=== PATIENT | male | born 1970 | race Two or more races ===

== ENCOUNTER 2024-12-11 23:46 | Inpatient (IN) | payer MEDICAID, OTHER ==
[~2024-12-11] VITALS: Ht 30.5 cm; Wt 0.5 kg
--- NOTE | 2024-12-12 00:15 | ED.PDOC ---
HPI Comments Patient brought in by EMS complaining of severe headache. Patient states he went to sleep this evening and woke up in middle of the night with severe headache, family states he was not acting appropriate. EMS state that he was answering all questions appropriately but seemed bit distracted due to the pain. Patient does have a history of end-stage renal disease, receives dialysis 3 times a week. Patient also blind. Patient denies any chest pain. Feels some mild nausea due to the headache. States the pain is in the front of his head into the back of his neck. Patient reports 10/10 pain. Says he does take metoprolol for his blood pressure and has been taking it as scheduled. Reports blood pressures typically in the 140 range, but sometimes can go up to 200 range. Patient will consult complaining of testicular swelling which started two days ago. Denies any pain to the area just noticed the swelling. Time Seen by MD: 23:49 Reviewed Notes: Nurses Notes Information Source: Patient, Emergency Med Personnel Past Medical History PAST MEDICAL HISTORY: Denies Surgical History: Denies all surgeries Constitutional: denies: chills, diaphoresis, fatigue, fever, malaise, sweats, weakness, others EENTM: reports: eye pain; denies: blurred vision, double vision, ear bleeding, ear discharge, ear drainage, ear pain, ear ringing, eye redness, hearing loss, mouth pain, mouth swelling, nasal discharge, nose bleeding, nose congestion, nose pain, photophobia, tearing, throat pain, throat swelling, voice changes, others Respiratory: denies: cough, hemoptysis, orthopnea, SOB at rest, shortness of breath, SOB with excertion, stridor, wheezing, others Cardiovascular: denies: chest pain, dizzy spells, diaphoresis, Dyspnea on exertion, edema, irregular heart beat, left arm pain, lightheadedness, palpitations, PND, syncope, others Gastrointestinal: denies: abdomen distended, abdominal pain, blood streaked bowels, constipated, diarrhea, dysphagia, difficulty swallowing, hematemesis, melena, nausea, poor appetite, poor fluid intake, rectal bleeding, rectal pain, vomiting, others Genitourinary: denies: burning, dysuria, flank pain, frequency, hematuria, incontinence, penile discharge, penile sore, pain, testicle pain, testicle swelling, urgency, others Neurological: denies: dizziness, fainting, headache, left sided numbness, left sided weakness, numbness, paresthesia, pre-existing deficit, right sided numbness, right sided weakness, seizure, speech problems, tingling, tremors, weakness, others Musculoskeletal: denies: back pain, gout, joint pain, joint swelling, muscle pain, muscle stiffness, neck pain, others Integumetry: denies: bruises, change in color, change in hair/nails, dryness, laceration, lesions, lumps, rash, wounds, others Allergic/Immunocompromised: denies: Difficulty Healing, Frequent Infections, Hives, Itching, others Hematologic/Lymphatic: denies: anemia, blood clots, easy bleeding, easy bruising, swollen glands, others Endocrine: denies: excessive hunger, excessive sweating, excessive thirst, excessive urination, flushing, intolerance to cold, intolerance to heat, unexplained weight gain, unexplained weight loss, others Psychiatric: denies: anxiety, bipolar disorder, depression, hopeless, panic d isorder, schizophrenia, sleepless, suicidal, others Physical Exam General Appearance: Moderate Distress, Normal HEENT: Normal ENT Inspection, Pharynx Normal, TMs Normal Neck: Full Range of Motion, Non-Tender, Normal, Normal Inspection Respiratory: Chest Non-Tender, Lungs Clear, No Accessory Muscle Use, No Respiratory Distress, Normal Breath Sounds Cardiovascular: No Edema, No JVD, No Murmur, No Gallop, Normal Peripheral Pulses, Regular Rate/Rhythm Breast Exam: Deferred Gastrointestinal: NOT DONE Genitalia: Testicle (Positive swelling, no tenderness), Deferred Pelvic: Deferred Rectal: Deferred Extremities: No calf tenderness, Normal capillary refill, Normal inspection, Normal range of motion, Non-tender, No pedal edema Musculoskeletal : Apperance: Normal Neurologic: Alert, No Motor Deficits, Normal Affect, Normal Mood, No Sensory Deficits Cerebellar Function: Normal Reflexes: Normal Skin: Dry, Normal Color, Warm Lymphatic: No Adenopathy Was a procedure done? Was a procedure done?: No CP Differential Dx Differential Diagnosis: Angina, Anxiety / Panic Attack Differential Diagnosis: HTN Essential, HTN Accelerated Differential Diagnosis: Chest Wall Pain Time of 1ST Reevaluation: 00:15 Reevaluation 1ST: Unchanged Patient Education/Counseling: Diagnosis, Treatment Family Education/Counseling: Diagnosis Assigned to Dr. nazario Change of Shift?: Yes SEPSIS Sepsis Screen Physician Orders Complete Blood Count (12/11/24 23:59) Comprehensive Metabolic Panel (12/11/24 23:59) Urinalysis (12/11/24 23:59) Head Without Contrast (12/12/24 00:00) Electrocardigram (12/12/24 00:01) Departure 1 Departure Time of Disposition: 00:14 Impression: Primary Impression: Hypertensive urgency Disposition: 09 ADMITTED INPATIENT Condition: Fair Discharged With: Self Critical Care Note Critical Care Time?: No Stability Stability form required: No Heart Score Heart Score: Heart Score Response (Comments) Value History N/A 0 EKG N/A 0 Age N/A 0 Risk Factors N/A 0 Troponin N/A 0 Total 0 CHON GASTELUM LUMBER GRADER Dec 12, 2024 00:15
[2024-12-12] MEDS: PROCHLORPERAZINE EDISYLATE 5 MG/ML 2ML VIAL IM ONE (00:32)
[2024-12-12] MEDS: KETOROLAC TROMETH 30 MG/ML 1ML VIAL IM ONE (00:33)
[2024-12-12 00:50] LABS: Hematocrit 37.1 % (41.0-53.0); Hemoglobin 12.3 g/dL (13.5-17.5); Mean Corpuscular Hemoglobin 29.8 pg (28.0-32.0); Mean Corpuscular Volume 89.9 fL (80.0-100.0); Nucleated Red Blood Cells % 0.0 %
[2024-12-12] MEDS: LABETALOL INJECTION 250 MG in SODIUM CHL 0.9% 200 ML IV ONE (00:58)
[2024-12-12 01:11] LABS: Albumin 4.6 g/dL (3.2-4.8); Anion Gap 15 (5-15); BUN/Creatinine Ratio 4.9 (10.0-20.0); Bilirubin, Total 0.4 mg/dL (0.2-1.0); Calcium 10.1 mg/dL (8.7-10.4); Carbon Dioxide 26 mmol/L (20-31); Glucose 91 mg/dL (74-106); Total Protein 7.8 g/dL (5.7-8.2)
--- NOTE | 2024-12-12 01:14 | DVH ---
EXAM: CT HEAD WITHOUT CONTRAST INDICATION: sun TECHNIQUE: CT of the head without intravenous contrast. Radiation Dose : 1. Head: CT Dose: CTDI volume is 58.85 mGy. Dose-length product is 1040.36 mGy*cm The dose indicators for CT are the volume Computed Tomography (CT) Dose Index (CTDIvol) and the Dose Length Product (DLP), and are measured in units of mGy and mGy-cm, respectively. These indicators are not patient dose, but values generated from the CT scanner acquisition factors. The report includes radiation exposure data for exposures received during this examination. COMPARISON: None FINDINGS: Brain: No acute hemorrhage, mass effect, or cerebral edema. Patchy periventricular white matter hypod ensity and mild global parenchymal volume loss. CSF Spaces: Mild symmetric expansion. Bones/Soft Tissues: No acute findings. Orbits/Sinuses/Mastoids: Prominent right scleral and lens calcification. Mild paranasal sinus disease . Unremarkable mastoid cells. IMPRESSION: 1. No acute intracranial abnormality. Radiation optimization: All CT scans at this facility use at least one of these dose optimization kaleigh hniques: automated exposure control mA and/or kV adjustment per patient size (includes targeted exam s where dose is matched to clinical indication) or iterative reconstruction.
[2024-12-12 01:16] LABS: Alanine Aminotransferase 9 U/L (7-40); Blood Urea Nitrogen 58 mg/dL (9-23); Chloride 95 mmol/L (98-107); Sodium 136 mmol/L (136-145)
[2024-12-12 01:17] LABS: Potassium 6.5 mmol/L (3.5-5.1)
[2024-12-12 01:24] LABS: Alkaline Phosphatase 75 U/L (46-116)
[2024-12-12] MEDS: ALBUTEROL SULF 2.5 MG/0.5ML(0.5%) NEB SOLN NEB ONE (01:37)
[2024-12-12] MEDS: SODIUM BICARB 8.4% 50Meq/50ml SYR INJ IV ONE ×2 (02:05→06:53)
[2024-12-12] MEDS: InsuLIN REG 1unit/0.01ml Soln (100units/ml) IV ONE (02:07)
[2024-12-12] MEDS: SODIUM ZIRCONIUM CYCL 10 GM PAK PO ONE (02:08)
[2024-12-12] MEDS: DEXTROSE (50%) 50ML SYRG IV ONE (02:08)
[2024-12-12] MEDS: CALCIUM GLUC 1,000mg/50ml-NS 50 ML IV ONE ×2 (03:18→06:53)
[2024-12-12] MEDS: HYDROcodone-ACET 5/325MG TAB PO ONE (03:55)
[2024-12-12] MEDS ORDERED: NITROGLYCERIN 0.4 MG SL TAB SL PRN (05:45)
[2024-12-12] MEDS ORDERED: ACETAMINOPHEN 325 MG TAB PO PRN ×2 (05:45→06:15)
[2024-12-12] MEDS ORDERED: CETI-120 PO (05:55)
[2024-12-12] MEDS ORDERED: FURO80TA3 PO (05:55)
[2024-12-12] MEDS ORDERED: DICL-545 (05:55)
[2024-12-12] MEDS ORDERED: SEVE800T10 PO (05:55)
[2024-12-12] MEDS: SEVELAMER 800 MG TAB PO SCH (06:15)
[2024-12-12] MEDS: MORPHINE SULFATE INJ 2 MG/ml SYRG IV PRN (06:18)
--- NOTE | 2024-12-12 06:27 | DVHHPRES ---
History of Present Illness Resident Creating Document: HEMA AYALA RESIDENT History of Present Illness 54-year-old male patient with past history of coronary artery disease status post CABG in July 2024 at [facility], ESRD on dialysis, hypertension presents to the hospital with complains of headache. The patient states that the headache started at 9:00 p.m. at night when he was at home watching the TV. He states that the headache who was 10 on 10 in intensity, located in the frontal and occipital areas, lasted for 45 minutes, radiating to his upper back. He de nies any fever, chest pain, palpitation or vision changes. PMHx:coronary artery disease status post CABG in July 2024 at [facility], ESRD on dialysis, hypertension PSHx:coronary artery disease status post CABG in July 2024 at [facility], appendectomy in 2019 Family history: Brother of heart attack age 56 Social history: Denies alcohol use and smoking. Says he used weed in the past. Home medication: the list is not with him right now, Please reconcile Allergic history: Ozempic, phenol, propylene glycol Review of Systems Review of Systems General: patient denies fever, fatigue, weaknes, sweating, any recent changes in appetite and weight HEENT: No headaches, visiual changes, hearing loss, tinnitus, nasal congestion and discharge, and sore throat. Cardiovascular: Denies chest pain, palpitations, dyspnea on exertion, orthopnea, or claudication. Respiratory: No cough, and wheezing. Gastrointestinal: Denies nausea, vomiting, dysphagia, odynophagia, heartburn, abdominal pain, flatulence, bloating, diarrhea, constipation, change in stool, or blood in stool. Genitourinary: No dysuria, hematuria, discharge, frequency, urgency, nocturia, incontinence, and urinary retention. Endocrine: No heat or cold intolerance, polydipsia, polyuria, and polyphagia. Neurological: No dizziness, extremity weakness and numbness, tremors, gait disturbance, seizures, and memory impairment. Psychiatric: Denies depression, anxiety,or insomnia. Musculoskeletal: Denies neck pain, stiffness and swelling, back pain, muscle weakness, joint pain, stiffness, swelling, or limited range of motion. Skin: No rashes, itching, skin lesion, changes in hair, nail, skin texture and breast. Hematologic/Lymphatic: Denies easy bruising, bleeding tendencies, or lymph node enlargement. Allergies: Coded Allergies: Phenol (Verified Allergy, Unknown, 12/12/24) Propylene Glycol (Verified Allergy, Unknown, 12/12/24) Semaglutide (Verified Allergy, Unknown, 12/12/24) Medications Current Medications Medications Dose Ordered Sig/Brittany Route Start Time Stop Time Status Last Admin Dose Admin Clonidine HCl 0.1 mg ONCE PRN PO 12/12/24 04:45 Acetaminophen 325 mg Q4HP PRN PO 12/12/24 05:45 Morphine Sulfate 2 mg Q4HPRN PRN IV 12/12/24 05:45 Nitroglycerin 0.4 mg Q5MINP PRN SL 12/12/24 05:45 Exam Vital Signs Vital Signs Date Time Temp Pulse Resp B/P (MAP) Pulse Ox O2 Delivery O2 Flow Rate FiO2 12/12/24 04:52 64 14 144/66 (92) 92 12/12/24 01:39 Room Air* 0 21 12/12/24 00:32 98.1 98.1 Exam General Appearance: Alert, Oriented X3, Cooperative, patient is in mild distress HEENT: Atraumatic, PERRLA, EOMI, Mucous membrane moist/pink Respiratory: Clear to auscultation, Normal air movement Cardiovascular: Regular rate, Normal S1, Normal S2, No murmurs, no chest wall tenderness Abdominal: Normal bowel sounds, Soft, No tenderness, No hepatospenomegaly, No masses Extremities: No clubbing, No cyanosis, No edema, Normal pulses, No tenderness/swelling Skin: No rashes, No breakdown, No significant lesion Neuro: Normal gait, Normal speech, Strength at 5/5 X4 ext, Normal tone, Sensa tion intact, Cranial nerves 3-12 NL, Reflexes 2+ Psych/Mental Status: Mental status NL, Mood NL Labs/Xrays Labs Test 12/12/24 03:17 12/12/24 00:14 Range/Units POC Glucose 97 70-106 mg/dl White Blood Count 6.6 4.4-10.8 10^3/uL Red Blood Count 4.13 L 4.5-5.90 10^6/uL Hemoglobin 12.3 L 13.5-17.5 g/dL Hematocrit 37.1 L 41.0-53.0 % Mean Corpuscular Volume 89.9 80.0-100.0 fL Mean Corpuscular Hemoglobin 29.8 28.0-32.0 pg Mean Corpuscular Hemoglobin Concent 33.1 32.0-36.0 g/dL Red Cell Distribution Width 16.1 H 11.8-14.3 % Platelet Count 170 140-450 10^3/uL Mean Platelet Volume 7.5 6.9-10.8 fL Neutrophils (%) (Auto) 73.0 37.0-80.0 % Lymphocytes (%) (Auto) 15.8 10.0-50.0 % Monocytes (%) (Auto) 9.1 0.0-12.0 % Eosinophils (%) (Auto) 1.4 0.0-7.0 % Basophils (%) (Auto) 0.7 0.0-2.0 % Neutrophils # (Auto) 4.8 1.6-8.6 10 ^3/uL Lymphocytes # (Auto) 1.0 0.4-5.4 10 ^3/uL Monocytes # (Auto) 0.6 0-1.3 10 ^3/uL Eosinophils # (Auto) 0.1 0-0.8 10 ^3/uL Basophils # (Auto) 0 0-0.2 10 ^3/uL Nucleated Red Blood Cells 0.0 % Sodium Level 136 136-145 mmol/L Potassium Level 6.5 *H 3.5-5.1 mmol/L Chloride Level 95 L 98-107 mmol/L Carbon Dioxide Level 26 20-31 mmol/L Anion Gap 15 5-15 Blood Urea Nitrogen 58 H 9-23 mg/dL Creatinine 11.82 *H 0.700-1.30 mg/dL Glomerular Filtration Rate Calc 5 >90 mL/min BUN/Creatinine Ratio 4.9 L 10.0-20.0 Serum Glucose 91 74-106 mg/dL Calcium Level 10.1 8.7-10.4 mg/dL Total Bilirubin 0.4 0.2-1.0 mg/dL Aspartate Amino Transferase (AST) 9 L 13-40 U/L Alanine Aminotransferase (ALT) 9 7-40 U/L Alkaline Phosphatase 75 46-116 U/L Total Protein 7.8 5.7-8.2 g/dL Albumin 4.6 3.2-4.8 g/dL SEPSIS Sepsis Screen Date sepsis recognized/suspect: Dec 11, 2024 Time Sepsis recognized/suspect: 2347 Recent Procedure: No On Antibiotic Therapy: No Respiratory Rate >20: No Heart Rate >90: No Temp<36 C (96.8 F) or >38.3 C: No SBP <90 or MAP <65 mmHG: No New Acute Mental Status Change: No Is the patient on CPAP, BIPAP,: No Physician Orders Urinalysis (12/11/24 23:59) Head Without Contrast (12/12/24 00:00) Electrocardigram (12/12/24 00:01) Clonidine Hcl Tablet (Catapres Tablet) (12/12/24 04:45) Admit (12/12/24 05:34) Allergies (12/12/24 05:34) Code Status (12/12/24 05:34) Renal Standard(2gna,3gk,Lopho) (12/12/24 Breakfast) Acetaminophen Tablet (Tylenol Tablet) (12/12/24 05:45) Fall Risk Precautions In Place QSHIFT (12/12/24 05:34) Condition: Serious (12/12/24 05:34) Morphine Sulfate Injection (12/12/24 05:45) Nitroglycerin Sublingual (Ntrostat Subli (12/12/24 05:45) Industrial Machinery Mechanic For 24 Hours (12/12/24 05:34) Rhythm Strips Once Every Shift (12/12/24 05:34) Stat Ekg For Chest Pain (12/12/24 05:34) Comprehensive Metabolic Panel (12/12/24 05:42) Drug Screen (12/12/24 05:47) Thyroid Stimulating Hormone (12/12/24 05:47) Blood Alcohol (12/12/24 05:47) Echo 2d Mode Cardiac Dop (12/12/24 05:48) *Dr. Mckayla Eldridge -Kvng Munson (12/12/24 05:50) Loratadine Tablet (Claritin Tablet) (12/12/24 22:00) Lidocaine 5% Topical Patch (Lidoderm 5% (12/12/24 10:00) Furosemide Injection (Lasix Injection) (12/12/24 10:00) Sevelamer (Renagel) (12/12/24 06:00) Sequential Compression Device (12/12/24 05:57) Vital Signs Date Time Temp Pulse Resp B/P (MAP) Pulse Ox O2 Delivery O2 Flow Rate FiO2 12/12/24 04:52 64 14 144/66 (92) 92 12/12/24 03:30 73 11 134/58 (83) 95 12/12/24 02:31 74 16 136/48 (77) 95 12/12/24 01:58 74 168/68 12/12/24 01:47 73 16 125/74 (91) 97 12/12/24 01:39 18 92 Room Air* 0 21 12/12/24 00:58 78 15 224/94 (137) 94 12/12/24 00:58 78 224/94 12/12/24 00:32 98.1 70 18 246/96 100 98.1 12/12/24 00:25 Room Air* 0 21 12/12/24 00:25 97.7 78 15 241/97 (145) 95 97.7 12/12/24 00:25 241/97 12/11/24 23:47 72 Laboratory Tests Test 12/12/24 00:14 White Blood Count 6.6 10^3/uL (4.4-10.8) Medications Medications Dose Ordered Sig/Brittany Route Start Time Stop Time Status Last Admin Dose Admin Acetaminophen/ Hydrocodone Bitart 1 tab ONCE ONCE PO 12/12/24 03:45 12/12/24 03:46 DC 12/12/24 03:55 1 TAB Albuterol 20 mg ONCE ONCE NEB 12/12/24 01:30 12/12/24 01:31 DC 12/12/24 01:37 20 MG Calcium Gluconate/ Sodium Chloride 50 ml @ 120 mls/hr ONCE ONCE IV 12/12/24 01:30 12/12/24 01:54 DC 12/12/24 03:18 120 MLS/HR Dextrose 50 ml ONCE ONCE IV 12/12/24 01:30 12/12/24 01:31 DC 12/12/24 02:08 50 ML Hydralazine HCl 25 mg ONCE ONCE PO 12/12/24 00:00 12/12/24 00:01 DC 12/12/24 00:25 25 MG Insulin Human Regular 10 units ONCE ONCE IV 12/12/24 01:30 12/12/24 01:31 DC 12/12/24 02:07 10 UNITS Ketorolac Tromethamine 30 mg ONCE ONCE IM 12/12/24 00:00 12/12/24 00:01 DC 12/12/24 00:33 30 MG Labetalol HCl 250 mg/Sodium Chloride 250 ml @ 60 mls/hr Q4H10M ONCE IV 12/12/24 00:45 12/12/24 04:54 DC 12/12/24 00:58 60 MLS/HR Prochlorperazine Edisylate 5 mg ONCE ONCE IM 12/12/24 00:00 12/12/24 00:01 DC 12/12/24 00:32 5 MG Sodium Bicarbonate 50 ml ONCE ONCE IV 12/12/24 01:30 12/12/24 01:31 DC 12/12/24 02:05 50 ML Zirconium Oxide 10 gm ONCE ONCE PO 12/12/24 01:30 12/12/24 01:31 DC 12/12/24 02:08 10 GM Assessment/Plan Assessment/Plan Hypertensive urgency On Antihypertensives Hyperkalemia On calcium gluconate Monitor potassium levels End-stage renal disease On dialysis 3 days a week Nephro consult given Normocytic anemia possibly due to CKD Coronary artery bypass graft in July 2024 at [facility] Essential hypertension Plan discussed with: Patient My Orders Orders - HEMA AYALA RESIDENT Procedure Category Date Status Time Admit ADMIT 12/12/24 Transmitted 05:34 Allergies ANDI 12/12/24 In Process 05:34 Code Status CODE 12/12/24 Transmitted 05:34 Renal DIET 12/12/24 Transmitted Standard(2gna,3gk,Lopho) Breakfast Acetaminophen Tablet PHA 12/12/24 In Process (Tylenol Tablet) 05:45 Fall Risk Precautions [facility] 12/12/[address] 05:34 Condition: Serious ANDI 12/12/24 In Process 05:34 Morphine Sulfate PHA 12/12/24 In Process Injection 05:45 Nitroglycerin PHA 12/12/24 In Process Sublingual (Ntrostat 05:45 Industrial Machinery Mechanic For ANDI 12/12/24 In Process 24 Hours 05:34 Rhythm Strips Once ANDI 12/12/24 In Process Every Shift 05:34 Stat Ekg For Chest ANDI 12/12/24 In Process Pain 05:34 Comprehensive LAB 12/12/24 Logged Metabolic Panel 05:42 Drug Screen LAB 12/12/24 Logged 05:47 Thyroid Stimulating LAB 12/12/24 Logged Hormone 05:47 Blood Alcohol LAB 12/12/24 Logged 05:47 Echo 2d Mode Cardiac US 12/12/24 Logged DOP 05:48 Date of Service: Dec 12, 2024 Billing Provider: GORDON URIBE MD Common Visit Codes: [id number] INP/OBS CARE (HIGH) Secondary Visit Codes: [id number] CARE PLAN 30 MINUTES HEMA AYALA RESIDENT Dec 12, 2024 06:27
[2024-12-12 06:43] LABS: Albumin 3.9 g/dL (3.2-4.8); Alkaline Phosphatase 61 U/L (46-116); Anion Gap 11 (5-15); BUN/Creatinine Ratio 4.7 (10.0-20.0); Bilirubin, Total 0.3 mg/dL (0.2-1.0); Calcium 9.6 mg/dL (8.7-10.4); Carbon Dioxide 28 mmol/L (20-31); Sodium 137 mmol/L (136-145); Total Protein 6.4 g/dL (5.7-8.2)
[2024-12-12 06:47] LABS: Alanine Aminotransferase < 9 U/L (7-40); Blood Urea Nitrogen 54 mg/dL (9-23); Chloride 98 mmol/L (98-107); Glucose 69 mg/dL (74-106)
[2024-12-12 06:48] LABS: Potassium 5.7 mmol/L (3.5-5.1)
--- NOTE | 2024-12-12 07:54 | DVHINCON2 ---
Date of service: Dec 12, 2024 Referring Physician Keyona Means [Resident] Reason for Consultation End-stage kidney disease, hyperkalemia History of Present Illness This is a 54-year-old male with history of end-stage kidney disease on hemodialysis, hypertension, coronary artery disease status post CABG in July of 2024 presenting to the emergency room complaining of severe headaches more so in the frontal and occipital area. Noted to have elevated blood pressure. Admitted with impression of hypertensive urgency. Labs done in the emergency showed a potassium of 6.5. Nephrology consulted for dialysis. Past Medical History End-stage kidney disease on hemodialysis Hypertension Coronary artery disease Past Surgical History Status post CABG Social History Denies any active history of smoking, alcohol or drug abuse Allergies: Coded Allergies: Phenol (Verified Allergy, Unknown, 12/12/24) Propylene Glycol (Verified Allergy, Unknown, 12/12/24) Semaglutide (Verified Allergy, Unknown, 12/12/24) Home Meds Reported Medications Cetirizine HCl (Cetirizine Hydrochloride) 10 Mg Tab, 1 TAB PO DAILYPRN PRN 12/12/24 Furosemide (Furosemide) 80 Mg Tab, 1 TAB PO DAILY 12/12/24 Sevelamer Carbonate (Sevelamer Carbonate) 800 Mg Tab, 800 MG PO 12/12/24 Diclofenac Sodium (Topical) (Aleve Arthritis Pain) 1 % Gel, 1 12/12/24 Current Medications Current Medications Medications (Trade) Dose Ordered Sig/Brittany Route PRN Reason Start Time Stop Time Status Last Admin Clonidine HCl (Catapres Tablet) 0.1 mg ONCE PRN PO SBP>180 12/12/24 04:45 Acetaminophen (Tylenol Tablet) 325 mg Q4HP PRN PO MILD PAIN (1-3 PAIN SCALE) 12/12/24 05:45 12/12/24 06:07 DC Morphine Sulfate 2 mg Q4HPRN PRN IV SEVERE PAIN (7-10 PAIN SCALE) 12/12/24 05:45 12/12/24 06:18 Nitroglycerin (Ntrostat Sublingual) 0.4 mg Q5MINP PRN SL FOR CHEST PAIN 12/12/24 05:45 Loratadine (Claritin Tablet) 10 mg HS PO 12/12/24 22:00 Lidocaine (Lidoderm 5% Topical Patch) 1 patch DAILY TOP 12/12/24 10:00 Furosemide (Lasix Injection) 80 mg DAILY IV 12/12/24 10:00 Sevelamer HCl (Renagel) 800 mg TID PO 12/12/24 06:00 12/12/24 06:15 Acetaminophen (Tylenol Tablet) 650 mg Q4HP PRN PO MILD PAIN (1-3 PAIN SCALE) 12/12/24 06:15 Zirconium Oxide (Lokelma) 10 gm TID PO 12/12/24 14:00 12/14/24 06:01 Review of Systems 12 point review of system negative except as stated in the HPI Vital Signs Vital Signs Date Time Temp Pulse Resp B/P (MAP) Pulse Ox O2 Delivery O2 Flow Rate FiO2 12/12/24 07:46 Room Air* 0 21 12/12/24 06:48 58 16 152/67 12/12/24 06:00 95 12/12/24 00:32 98.1 98.1 Physical Exam Alert awake oriented x3 HEENT: Normocephalic, no JVD Lungs: Bilateral good air entry CVS: S1, S2 regular rate rhythm Abdomen: Soft, bowel sounds present SOLDERING MACHINE TENDER: No focal deficits Extremities: No edema Labs/Diagnostic Data Labs Test 12/12/24 06:00 12/12/24 03:17 12/12/24 00:14 Range/Units Sodium Level 137 136-145 mmol/L Potassium Level 5.7 *H 3.5-5.1 mmol/L Chloride Level 98 98-107 mmol/L Carbon Dioxide Level 28 20-31 mmol/L Anion Gap 11 5-15 Blood Urea Nitrogen 54 H 9-23 mg/dL Creatinine 11.54 *H 0.700-1.30 mg/dL Glomerular Filtration Rate Calc 5 >90 mL/min BUN/Creatinine Ratio 4.7 L 10.0-20.0 Serum Glucose 69 L 74-106 mg/dL Calcium Level 9.6 8.7-10.4 mg/dL Total Bilirubin 0.3 0.2-1.0 mg/dL Aspartate Amino Transferase (AST) 9 L 13-40 U/L Alanine Aminotransferase (ALT) < 9 7-40 U/L Alkaline Phosphatase 61 46-116 U/L Total Protein 6.4 5.7-8.2 g/dL Albumin 3.9 3.2-4.8 g/dL Thyroid Stimulating Hormone (TSH) 4.23 0.55-4.78 uIU/mL Plasma/Serum Blood Alcohol < 3.0 <10 mg/dL POC Glucose 97 70-106 mg/dl White Blood Count 6.6 4.4-10.8 10^3/uL Red Blood Count 4.13 L 4.5-5.90 10^6/uL Hemoglobin 12.3 L 13.5-17.5 g/dL Hematocrit 37.1 L 41.0-53.0 % Mean Corpuscular Volume 89.9 80.0-100.0 fL Mean Corpuscular Hemoglobin 29.8 28.0-32.0 pg Mean Corpuscular Hemoglobin Concent 33.1 32.0-36.0 g/dL Red Cell Distribution Width 16.1 H 11.8-14.3 % Platelet Count 170 140-450 10^3/uL Mean Platelet Volume 7.5 6.9-10.8 fL Neutrophils (%) (Auto) 73.0 37.0-80.0 % Lymphocytes (%) (Auto) 15.8 10.0-50.0 % Monocytes (%) (Auto) 9.1 0.0-12.0 % Eosinophils (%) (Auto) 1.4 0.0-7.0 % Basophils (%) (Auto) 0.7 0.0-2.0 % Neutrophils # (Auto) 4.8 1.6-8.6 10 ^3/uL Lymphocytes # (Auto) 1.0 0.4-5.4 10 ^3/uL Monocytes # (Auto) 0.6 0-1.3 10 ^3/uL Eosinophils # (Auto) 0.1 0-0.8 10 ^3/uL Basophils # (Auto) 0 0-0.2 10 ^3/uL Nucleated Red Blood Cells 0.0 % Assessment End-stage kidney disease on hemodialysis Hyperkalemia Accelerated hypertension History of coronary artery disease Status post CABG Plan/Recommendation Hemodialysis today. Ultrafiltration up to 3.5 L as tolerated by blood pressure. Lokelma 10 g x 1 has been given. Discontinue standing or drug Lokelma. Daily labs. Plan discussed with: Other CHARANJIT JONES MD Dec 12, 2024 07:54
[2024-12-12 08:00] VITALS: TEMP 97.4
[2024-12-12] MEDS ORDERED: SODIUM CHL 0.9% 1000 ML BAG XX ONE (08:30)
[2024-12-12] MEDS: LIDOCAINE 5% TOPICAL PATCH TOP SCH (10:04)
[2024-12-12] MEDS: FUROSEMIDE 100 MG/10ML VIAL IV SCH (10:04)
--- NOTE | 2024-12-12 12:14 | DVHSR ---
APPROVED REPORT EXAM: Two-dimensional and M-mode echocardiogram with Doppler and color Doppler. Blood Pressure: 152/67 mmHg INDICATION rule out structural heart disease Surgery/Intervention CABG: Date: 07/2024 RISK FACTORS Height: 5'4, Weight: 210 DIMENSIONS LVDd4.5 (3.8-5.7cm)LA (2D)4.1 (1.9-4.0cm)Aortic Root2.9 (2.0-3.7cm) LVDs3.0 (2.5-4.0cm)LA (MM) (1.9-4.0cm)Aortic Cusp Exc1.3 (1.5-2.0cm) EF (%) 60.0 (55-70%)Rt. Atrium3.8 (1.9-4.0cm)Asc. Aorta cm IVSd1.1 (0.7-1.1cm)RV (D)4.1 (1.8-2.4cm) PWd1.2 (0.7-1.1cm) Mitral Valve MitralMitral Stenosis E wave0.73m/sMV Mean GR.mmHg A wave0.93m/sMV Peak GR.mmHg E/A ratio0.82D MVAcm2 DECEL [id number] 1/2 Timems Aortic Valve Aortic ValveAortic Stenosis V11.00m/Almas Mean GR.3mmHg V21.09m/Almas Peak GR.5mmHg LVOT Diameter2.2 (1.8-2.4cm)Doppler AVA3.49cm2 Pulmonic Valve V20.93m/s Other Information Technically limited study due to pt sitting up Conclusion lvef 50-55% by kay johns moderate to severe LVH RV not well seen left atrium enlarged large left pleural effusion vs anasarca/ ascites/ clinical correlate
[2024-12-12] MEDS: ALBUMIN 25% 100 ML IV ONE (13:02)
[2024-12-12 14:00] VITALS: BP 102/50; PULSE 57; RESP 18; O2SAT 99
[2024-12-12] MEDS ORDERED: SODIUM ZIRCONIUM CYCL 10 GM PAK PO SCH (14:00)
--- NOTE | 2024-12-12 18:46 | DVHPNRES ---
Progress Note Date Seen: Dec 12, 2024 Resident Creating Document: ORTEGA DUARTE RESIDENT Medical Necessity Reason Pt with a Central, PICC or Fol: No Subjective Review of Systems Vald Saenz is a 54-year-old male patient who presents to the hospital with complains of headache. The patient states that the headache started at 9:00 p.m. at night when he was at home watching the TV. He states that the headache who was 10 on 10 in intensity, located in the frontal and occipital areas, lasted for 45 minutes, radiating to his upper back. He denies any fever, chest pain, palpitation or vision changes. Past medical history: Hypertension, coronary artery disease status post CABG in July 2024 at [facility], ESRD on dialysis Surgical history:CABG in July 2024 at [facility], appendectomy in 2019, IV fistula Family history: Brother of heart attack age 56 Social history: Lives in [place] alone. Ex marijuana abuse. Denies current tobacco, alcohol and other drug abuse. Allergic history: Ozempic, phenol, propylene glycol, seasonal allergies Home medication: Cetirizine, diclofenac gel, furosemide 80 mg p.o. daily, sevelamer 800 mg p.o. daily Patient seen and examined at bedside. Nephrology consulted, planning on urgent hemodialysis. Completed head CT due to severe headache, showed no acute intracranial pathology. Objective vital signs Vital Sign Date Time Temp Pulse Resp B/P (MAP) Pulse Ox O2 Delivery O2 Flow Rate FiO2 12/12/24 14:00 57 18 102/50 (67) 99 12/12/24 08:00 97.4 97.4 12/12/24 07:46 Room Air* 0 21 Total Intake and Output 12/11/24 12/11/24 12/12/24 15:00 23:00 07:00 Intake Total 250 ml Balance 250 ml medications Current Medications Medications Dose Ordered Sig/Brittany Route Start Time Stop Time Status Last Admin Dose Admin Clonidine HCl 0.1 mg ONCE PRN PO 12/12/24 04:45 12/12/24 10:36 0.1 MG Morphine Sulfate 2 mg Q4HPRN PRN IV 12/12/24 05:45 12/12/24 06:18 2 MG Nitroglycerin 0.4 mg Q5MINP PRN SL 12/12/24 05:45 Loratadine 10 mg HS PO 12/12/24 22:00 Lidocaine 1 patch DAILY TOP 12/12/24 10:00 12/12/24 10:04 1 PATCH Furosemide 80 mg DAILY IV 12/12/24 10:00 12/12/24 10:04 80 MG Sevelamer HCl 800 mg TID PO 12/12/24 06:00 12/12/24 13:18 800 MG Acetaminophen 650 mg Q4HP PRN PO 12/12/24 06:15 Examination Pt is lying on bed General Appearance: Alert, Oriented X3, Cooperative, Not in acute distress HEENT: Atraumatic, Mucous membranes moist/pink Respiratory: Clear to auscultation, Normal air movement, No added sounds Cardiovascular: Regular rate, Normal S1, Normal S2, No murmurs Abdominal: Active bowel sounds, Soft, no distention, no tenderness Extremities: A-V Fistula for dialysis, No edema, Normal pulses, No tenderness/swelling Skin: No Significant rash, except past surgical scars Neuro: Normal speech, sensorimotor deficits none Psych/Mental Status: Mental status NL, Mood NL Nurse was there as lab specialist during examination laboratory and microbiology Laboratory Tests 12/12/24 10:19 12/12/24 06:00 12/12/24 00:14 Test 12/12/24 06:00 Range/Units Serum Glucose 69 L 74-106 mg/dL Problem List/Assessment/Plan Problem List/Assessment/Plan ASSESSMENT Hypertensive urgency Severe Hyperkalemia End-stage kidney disease on hemodialysis Ruled out CVA History of coronary artery disease - s/p CABG Status post CABG Hypertension Noncompliance PLAN No aggressive hypertension control based on current guidelines. Monitor BP. Hemodialysis done today. Ultrafiltration up to 3.5 L as tolerated by blood pressure. Lokelma 10 g x 1 has been given. Discontinue standing or drug Lokelma. Monitor labs GI prophylaxis: Not indicated DVT prophylaxis: Heparin Diet: Renal Goals of care discussed with the patient for more than 27 minutes: Full code status Case discussed with , patient and RN Cosigning senior Resident: Ayanna Salinas, agree with progress note Plan discussed with: Patient, Other (RN) Date of Service: Dec 12, 2024 Billing Provider: CECY FERNANDEZ MD Common Visit Codes: [id number] INP/OBS CARE(HIGH) ORTEGA DUARTE RESIDENT Dec 12, 2024 18:46 AYANNA SALINAS RESIDENT Dec 14, 2024 00:28 CECY FERNANDEZ MD Dec 15, 2024 22:38
[2024-12-12] MEDS ORDERED: LORATADINE 10 MG TAB PO SCH (22:00)
--- NOTE | 2024-12-14 00:26 | DVHDSRES ---
Discharge Summary Date of Admission Resident Creating Document: FRANNY SALINAS RESIDENT Dec 12, 2024 at 05:34 Date of Discharge: Dec 12, 2024 Labs/Diagnostic Data: Laboratory Results Test 12/12/24 10:19 12/12/24 06:00 12/12/24 03:17 12/12/24 00:14 Potassium Level 6.0 mmol/L (3.5-5.1) Sodium Level 137 mmol/L (136-145) Chloride Level 98 mmol/L (98-107) Carbon Dioxide Level 28 mmol/L (20-31) Anion Gap 11 (5-15) Blood Urea Nitrogen 54 mg/dL (9-23) Creatinine 11.54 mg/dL (0.700-1.30) Glomerular Filtration Rate Calc 5 mL/min (>90) BUN/Creatinine Ratio 4.7 (10.0-20.0) Serum Glucose 69 mg/dL (74-106) Calcium Level 9.6 mg/dL (8.7-10.4) Total Bilirubin 0.3 mg/dL (0.2-1.0) Aspartate Amino Transferase (AST) 9 U/L (13-40) Alanine Aminotransferase (ALT) < 9 U/L (7-40) Alkaline Phosphatase 61 U/L (46-116) Total Protein 6.4 g/dL (5.7-8.2) Albumin 3.9 g/dL (3.2-4.8) Thyroid Stimulating Hormone (TSH) 4.23 uIU/mL (0.55-4.78) Plasma/Serum Blood Alcohol < 3.0 mg/dL (<10) POC Glucose 97 mg/dl (70-106) White Blood Count 6.6 10^3/uL (4.4-10.8) Red Blood Count 4.13 10^6/uL (4.5-5.90) Hemoglobin 12.3 g/dL (13.5-17.5) Hematocrit 37.1 % (41.0-53.0) Mean Corpuscular Volume 89.9 fL (80.0-100.0) Mean Corpuscular Hemoglobin 29.8 pg (28.0-32.0) Mean Corpuscular Hemoglobin Concent 33.1 g/dL (32.0-36.0) Red Cell Distribution Width 16.1 % (11.8-14.3) Platelet Count 170 10^3/uL (140-450) Mean Platelet Volume 7.5 fL (6.9-10.8) Neutrophils (%) (Auto) 73.0 % (37.0-80.0) Lymphocytes (%) (Auto) 15.8 % (10.0-50.0) Monocytes (%) (Auto) 9.1 % (0.0-12.0) Eosinophils (%) (Auto) 1.4 % (0.0-7.0) Basophils (%) (Auto) 0.7 % (0.0-2.0) Neutrophils # (Auto) 4.8 10 ^3/uL (1.6-8.6) Lymphocytes # (Auto) 1.0 10 ^3/uL (0.4-5.4) Monocytes # (Auto) 0.6 10 ^3/uL (0-1.3) Eosinophils # (Auto) 0.1 10 ^3/uL (0-0.8) Basophils # (Auto) 0 10 ^3/uL (0-0.2) Nucleated Red Blood Cells 0.0 % Other Laboratory Tests 12/12/24 10:19 12/12/24 06:00 12/12/24 00:14 Brief Hx & Hospital Course: Vlad Saenz is a 54-year-old male patient who presents to the hospital with complains of headache. The patient states that the headache started at 9:00 p.m. at night when he was at home watching the TV. He states that the headache who was 10 on 10 in intensity, located in the frontal and occipital areas, lasted for 45 minutes, radiating to his upper back. He denies any fever, chest pain, palpitation or vision changes. Past medical history: Hypertension, coronary artery disease status post CABG in July 2024 at [facility], ESRD on dialysis Surgical history:CABG in July 2024 at [facility], appendectomy in 2019, IV fistula Family history: Brother of heart attack age 56 Social history: Lives in [place] alone. Ex marijuana abuse. Denies current tobacco, alcohol and other drug abuse. Allergic history: Ozempic, phenol, propylene glycol, seasonal allergies Home medication: Cetirizine, diclofenac gel, furosemide 80 mg p.o. daily, sevelamer 800 mg p.o. daily Brief hospital course: Hypertensive urgency symptomatic by headache associated with severe hyperkalemia in patient with end-stage renal disease.vPatient required IV antihypertensive medication and hyperkalemia protocol. Completed head CT which showed no acute intracranial pathology; also completed echocardiogram which showed LVEF of 50-55%, [id number] LVH, left atrial enlargement and large left pleural effusion versus anasarca. Consulted Nephrology who indicated emergent hemodialysis session. Once patient completed session of hemodialysis, patient decided to leave against medical advice, without having a redraw his potassium. Patient unstable, with unknown potassium after hemodialysis session, he is oriented in three spheres, he is lucid. Patient decides to leave against medical advice before stabilizing his electrolytes. Explained risk of doing so which include severe hyperkalemia, ventricular arrhythmia and even . Patient takes full responsibility of his actions and lives against medical advice. DIAGNOSIS Hypertensive urgency Severe Hyperkalemia - unresolved End-stage kidney disease on hemodialysis Ruled out CVA History of coronary artery disease - s/p CABG Status post CABG Hypertension Noncompliance Goals of care discussed with the patient for more than 27 minutes: Full code status Case discussed with Physical examination could not be completed since patient left AMA Operations or Procedures EXAM: Two-dimensional and M-mode echocardiogram with Doppler and color Doppler. Blood Pressure: 152/67 mmHg INDICATION rule out structural heart disease Surgery/Intervention CABG: Date: 07/2024 RISK FACTORS Height: 5'4, Weight: 210 DIMENSIONS LVDd 4.5 (3.8-5.7cm) LA (2D) 4.1 (1.9-4.0cm) Aortic Root 2.9 (2.0- 3.7cm) LVDs 3.0 (2.5-4.0cm) LA (MM) (1.9-4.0cm) Aortic Cusp Exc 1.3 (1.5- 2.0cm) EF (%) 60.0 (55-70%) Rt. Atrium 3.8 (1.9-4.0cm) Asc. Aorta cm IVSd 1.1 (0.7-1.1cm) RV (D) 4.1 (1.8-2.4cm) PWd 1.2 (0.7-1.1cm) Mitral Valve Mitral Mitral Stenosis E wave 0.73m/s MV Mean GR. mmHg A wave 0.93m/s MV Peak GR. mmHg E/A ratio 0.8 2D MVA cm2 DECEL Time 280ms PRESS 1/2 Time ms Aortic Valve Aortic Valve Aortic Stenosis V1 1.00m/s AO Mean GR. 3mmHg V2 1.09m/s AO Peak GR. 5mmHg LVOT Diameter 2.2 (1.8-2.4cm) Doppler RETA 3.49cm2 Pulmonic Valve V2 0.93m/s Other Information Technically limited study due to pt sitting up Conclusion lvef 50-55% by kay johns moderate to severe LVH RV not well seen left atrium enlarged large left pleural effusion vs anasarca/ ascites/ clinical correlate SIGNED BY: ATUL ARELLANO MD SIGNED DATE/TIME: 12/12/24 1214 EXAM: CT HEAD WITHOUT CONTRAST INDICATION: sun TECHNIQUE: CT of the head without intravenous contrast. Radiation Dose : 1. Head: CT Dose: CTDI volume is 58.85 mGy. Dose-length product is 1040.36 mGy*cm The dose indicators for CT are the volume Computed Tomography (CT) Dose Index (CTDIvol) and the Dose Length Product (DLP), and are measured in units of mGy and mGy-cm, respectively. These indicators are not patient dose, but values generated from the CT scanner acquisition factors. The report includes radiation exposure data for exposures received during this examination. COMPARISON: None FINDINGS: Brain: No acute hemorrhage, mass effect, or cerebral edema. Patchy periventricular white matter hypodensity and mild global parenchymal volume loss. CSF Spaces: Mild symmetric expansion. Bones/Soft Tissues: No acute findings. Orbits/Sinuses/Mastoids: Prominent right scleral and lens calcification. Mild paranasal sinus disease. Unremarkable mastoid cells. IMPRESSION: 1. No acute intracranial abnormality. Radiation optimization: All CT scans at this facility use at least one of these dose optimization techniques: automated exposure control mA and/or kV adjustment per patient size (includes targeted exams where dose is matched to clinical indication) or iterative reconstruction. ATED BY: DIEGO VILLARREAL MD DICTATED DATE/TIME: 12/12/24 0111 Condition at Discharge: Undetermined Final Diagnosis/Problems List Hypertensive urgency Severe Hyperkalemia - unresolved End-stage kidney disease on hemodialysis Ruled out CVA History of coronary artery disease - s/p CABG Status post CABG Hypertension Noncompliance Discharge Disposition: AMA Discharge Instruct/Medications Scheduled Furosemide (Furosemide), 1 TAB PO DAILY, (Reported) Scheduled PRN Cetirizine HCl (Cetirizine Hydrochloride), 1 TAB PO DAILYPRN PRN, (Reported) Miscellaneous Medications Diclofenac Sodium (Topical) (Aleve Arthritis Pain), 1, (Reported) Sevelamer Carbonate (Sevelamer Carbonate), 800 MG PO, (Reported) Discharge Statement: "Patient was advised to return to the ER or call 911 if any headaches, dizziness, shortness of breath, chest pain, abdominal pain, bleeding, fevers, or worsening of medical condition. Patient was counseled about treatment plan, medications, possible side effects, patientverbalized understanding. All questions were answered to the best of my ability. This discharge took greater then 30 minutes in planning, reviewing documentation, counseling the patient, and discussing with other team members." ASSESSMENT ASSESSMENT Assessment FRANNY SALINAS RESIDENT Dec 14, 2024 00:26
--- NOTE | 2024-12-14 10:39 | ECG ---
[facility] Test Date: 2024-12-11 Test Time: 23:50:06 Pat Name: LONA MYERS Department: [facility] ED Patient ID: [facility]-[id number] Room: [address] [place] [address] Gender: M [employer]itness And Wellness Manager: danelle : 1970 Requested By: EMERGENCY EMERGENCY Order Number: [id number] Reading MD: Vickey Powell Measurements Intervals [place] Rate: 72 P: 45 MS: 185 QRS: 4 QRSD: 165 T: 48 QT: 461 QTc: 505 Interpretive Statements Sinus rhythm Right bundle branch block Electronically Signed On 12-14-2024 18:41:07 PDT by Vickey Powell Please click the below link to view image of tracing.
== END 2024-12-12 15:31 | disposition left against medical advice (07) | DRG 199 ==
LOC: ER 23:46 → EDBD 23:46 → OVERFLOW 12-12 05:34
PROVIDERS: ADMIT Student in an Organized Health Care Education/Training Program; ATTEND Student in an Organized Health Care Education/Training Program
PROC: 5A1D70Z Performance of Urinary Filtration, Intermittent, Less than 6 Hours Per Day (ICD-10-PCS; principal; 2024-12-12)
DX: I16.0 Hypertensive urgency (principal); N18.6 End stage renal disease; E87.5 Hyperkalemia; I12.0 Hypertensive chronic kidney disease with stage 5 chronic kidney disease or end stage renal disease; Z53.29 Procedure and treatment not carried out because of patient's decision for other reasons; D64.9 Anemia, unspecified; I25.10 Atherosclerotic heart disease of native coronary artery without angina pectoris; Z99.2 Dependence on renal dialysis; Z95.1 Presence of aortocoronary bypass graft; Z88.8 Allergy status to other drugs, medicaments and biological substances; Z79.899 Other long term (current) drug therapy; Z91.199 Patient's noncompliance with other medical treatment and regimen due to unspecified reason
CPT/HCPCS: 36415; 70450; 80053; 80320; 82962; 84132; 84443; 85025; 90935; 93005; 93306; 94640; 96365; 96366; 96367; 96368; 96372; 96375; 96376; G0378; J1815; J1885; P9047